=== PATIENT | male | born 1985 ===

== ENCOUNTER 2025-05-07 11:48 | Emergency (ER) | payer SELFPAY ==
[~2025-05-07] VITALS: Ht 165.1 cm; Wt 75.0 kg
[2025-05-07 12:01] VITALS: O2SAT 100
[2025-05-07 12:54] VITALS: BP 128/83; PULSE 77; RESP 18; TEMP 36.7; O2SAT 100
[2025-05-07] MEDS: VISCOUS LIDOCAINE 2% 15 ML UDC MM ONE (12:54)
[2025-05-07] MEDS: DEXAMETHASONE 4MG TABLET PO ONE (12:54)
== END 2025-05-07 13:38 | disposition left against medical advice (07) ==
LOC: ER 11:48
DX: J02.9 Acute pharyngitis, unspecified (principal)
CPT/HCPCS: 99283; 87430; 87070; J8540